=== PATIENT | female | born 2005 | race Caucasian/White ===

== ENCOUNTER → 2025-01-15 15:04 | Outpatient (REF) | payer OTHER, SELFPAY | LOC: WDC 15:04 | PROVIDERS: ATTENDING PHYSICIAN Obstetrics & Gynecology; FAMILY PHYSICIAN Internal Medicine | DX: N63.23 Unspecified lump in the left breast, lower outer quadrant (principal) | CPT/HCPCS: 76642 ==

== ENCOUNTER 2025-05-31 10:34 | Emergency (ER) | payer OTHER, SELFPAY ==
[2025-05-31 10:42] VITALS: BP 117/84
--- NOTE | 2025-05-31 14:34 | ED.GENMED ---
History of Present Illness
General
Chief Complaint: Headache
Source: patient
Exam Limitations: none
Time Seen by Provider: 05/31/25 11:35
Nursing documentation reviewed up to this point in time: agreed with
History of Present Illness
History of Present Illness:
20-year-old female with history of anxiety/depression presenting with a complaint of headaches for the past week. She describes the headache as intermittent and located at the front of her head, near the sinus region. She reports that the symptoms
worsened yesterday. The headache has been presenting as a pressure sensation, but she does not report any associated nausea, vomiting, diarrhea, stomach pain, chest pain, dizziness, or visual changes. She rates the severity of the headache as a 4
out of 10, indicating it is painful but she remains functional.
The patient took two doses of acetaminophen, cetirizine (Zyrtec), and used fluticasone propionate (Flonase) with partial relief. She does not have a history of chronic headaches or migraines but notes a family history of migraines on her mothers
side. She denies any history of neck pain, recent head injury, or trauma.
She notes the onset of her headache symptoms correlates with her exposure to computer screens and has noticed occasional improvement upon resting. The patient speculates that weather changes, including barometric pressure, may be influencing her
symptoms.
Father at bedside states she has anxiety and is afraid there is fear of a brain tumor. They went to urgent care prior to coming here and sent him here for head CT.
Past History
Past History
ED Past Medical History: Psychiatric (Anxiety/depression) and Other (Iron deficiency anemia)
Social History
Tobacco: Non-smoker
Alcohol: None
Drug: None
Personal: Single
Living: with family
Employment: Student
Review of Systems
Review of Systems
Allergies reviewed?: Yes
All Other Systems: ROS reviewed and negative except as documented in HPI and ROS
Constitutional: Denies fever
ABD/GI: Denies nausea or vomiting
Musculoskeletal: Denies neck pain
Skin: Reports no symptoms
Neurological: Reports headache; Denies dizzy, weakness or numbness
Phy Exam
Physical Exam
Physical Exam:
GENERAL: No acute distress. A&Ox3.
CONSTITUTIONAL: Afebrile.
EYES: clear, conjunctivae normal, PERRL
ENMT: moist mucus membranes, Pharynx nl, TMs normal
RESPIRATORY: Regular respirations, nonlabored, lungs clear.
CARDIOVASCULAR: Regular rate and rhythm, no murmurs, no rubs.
GI: Soft, nontender, normal BS
MUSCULOSKELETAL: Moves with ease. Well perfused.
SKIN: Warm, dry, pink
PSYCH: Normal mood and affect. Well kept, interactive and appropriate
NEUROLOGIC: Awake, alert and oriented. Cranial nerves II through XII intact. No focal neurological deficits. [id number] intact. Ambulates well with steady gait.
Course
Orders/Labs/Results
Orders:
Orders
05/31/25 11:51
CT Head W/o Iv Contrast Urgent
Comment:
Reason For Exam: frontal headache
Vital Signs
Initial and Last Documented VS:
Initial Vital Signs
Temp Pulse Resp BP Pulse Ox
97.6 F 101 16 117/84 100
05/31/25 10:42 05/31/25 10:42 05/31/25 10:42 05/31/25 10:42 05/31/25 10:42
Last Documented Vital Signs
Temp Pulse Resp BP Pulse Ox
97.6 F 101 16 117/84 100
05/31/25 10:42 05/31/25 10:42 05/31/25 10:42 05/31/25 10:42 05/31/25 14:39
MDM/Problems Addressed
Differential Diagnosis Includes:
Tension headache, sinus headache, migraine
MDM/Problems Addressed:
20-year-old female with history of anxiety/depression presenting with a complaint of headaches for the past week. She describes the headache as intermittent and located at the front of her head, near the sinus region. She reports that the symptoms
worsened yesterday. The headache has been presenting as a pressure sensation, but she does not report any associated nausea, vomiting, diarrhea, stomach pain, chest pain, dizziness, or visual changes. She rates the severity of the headache as a 4
out of 10, indicating it is painful but she remains functional.
The patient took two doses of acetaminophen, cetirizine (Zyrtec), and used fluticasone propionate (Flonase) with partial relief. She does not have a history of chronic headaches or migraines but notes a family history of migraines on her mothers
side. She denies any history of neck pain, recent head injury, or trauma.
She notes the onset of her headache symptoms correlates with her exposure to computer screens at work and has noticed occasional improvement upon resting. The patient speculates that weather changes, including barometric pressure, may be influencing
her symptoms.
Afebrile, NAD
Patient admits to being anxious and wonders if her iron deficiency anemia has anything to do with her headaches as she stopped taking her iron supplements.
Father at bedside states she has anxiety and is afraid there is fear of a brain tumor. They went to urgent care prior to coming here and sent her here for head CT.
Neuro exam is totally normal.
Head CT is normal. Sinuses normal. Patient reassured, stable for discharge
*Pulse Oximetry
SaO2: 100
Oxygen Mode of Delivery: Room air
Patient hypoxic: not evaluated
*Critical Care Note
Total Time (30-74mins, 75-104mins- exclusive of procedures): Not Applicable
ED Attending Note
-
Portions of this chart may have been created with voice recognition software.� Occasional wrong word or��sound alike� substitutions may have occurred due to the inherent limitations of voice recognition software.
Discharge Plan
Departure
Patient Disposition: Home (Routine Discharge)
Date of Disposition: 05/31/25
Time of Disposition: 13:46
Patient with high blood pressure during this ER visit?: No
Condition: Good
Discharge Problem:
Headache, Anxiety about health
Instructions: Headache, Adult (DC)
Prescriptions:
No Action
Citalopram
30 mg PO DAILY
Referrals:
Pacheco Acevedo MD [Family Provider, Internal Medicine] - As needed
Activity Restrictions/Additional Instructions:
As we discussed, your head CT is normal
Tylenol or ibuprofen as needed for headache
You may continue over the counter antihistamines if your sinuses feel congested.
Interventions
Interventions:
*Risk Screen - Suicide Last Done: 05/31/25 10:42
*General Assessment Last Done: 05/31/25 11:14
*Neglect/Abuse Screening Last Done: 05/31/25 10:42
*ED- Fall Risk Assessment Last Done: 05/31/25 11:14
*Nursing Disposition Last Done: 05/31/25 13:49
ED- Neurological Assessment Last Done: 05/31/25 11:14
Discharge Date and Time
Discharge Date/Time: 05/31/25 13:49
Print Language: CHILEAN
== END 2025-05-31 13:49 | disposition home or self-care (01) ==
LOC: EMR 10:34
PROVIDERS: EMERGENCY PHYSICIAN Emergency Medicine; FAMILY PHYSICIAN Internal Medicine
DX: R51.9 Headache, unspecified (principal); F41.9 Anxiety disorder, unspecified; F32.A Depression, unspecified; Z71.1 Person with feared health complaint in whom no diagnosis is made
CPT/HCPCS: 99284; 70450